=== PATIENT | male | born 1930 | race Caucasian/White ===

== ENCOUNTER 2017-11-04 16:16 | Inpatient (IN) | payer MEDICARE ==
[2017-11-04 17:19] LABS: HEMATOCRIT 42.6 % (42.0-52.0); HEMOGLOBIN 14.4 g/dl (13.5-17.5); MEAN CORPUSCULAR HGB CONC 33.8 g/dl (32.0-36.5); MEAN CORPUSCULAR VOLUME 94.7 fl (80.0-96.0); PLATELET COUNT, AUTOMATED 868 10^3/uL (150-450); RED CELL DISTRIBUTION WIDTH 14.3 % (11.5-14.5); WHITE BLOOD COUNT 20.7 10^3/uL (4.0-10.0)
[2017-11-04 17:43] LABS: ALBUMIN 3.7 GM/DL (3.2-5.2); ALBUMIN/GLOBULIN RATIO 1.19 (1.00-1.93); ALKALINE PHOSPHATASE 88 U/L (45-117); ALT/SGPT 34 U/L (12-78); ANION GAP 7 MEQ/L (8-16); AST/SGOT 24 U/L (7-37); BILIRUBIN,TOTAL 0.7 MG/DL (0.2-1.0); BLOOD UREA NITROGEN 20 MG/DL (7-18); CALCIUM LEVEL 9.2 MG/DL (8.8-10.2); CARBON DIOXIDE LEVEL 29 MEQ/L (21-32); CHLORIDE LEVEL 109 MEQ/L (98-107); CREATININE FOR GFR 1.06 MG/DL (0.70-1.30); GLOMERULAR FILTRATION RATE > 60.0 (>35); GLUCOSE, FASTING 101 MG/DL (70-100); POTASSIUM SERUM 4.3 MEQ/L (3.5-5.1); SODIUM LEVEL 145 MEQ/L (136-145); TOTAL PROTEIN 6.8 GM/DL (6.4-8.2)
[2017-11-04 17:50] LABS: INR 1.07; PROTHROMBIN TIME 14.1 SECONDS (12.1-14.4)
[2017-11-04 17:51] LABS: PARTIAL THROMBOPLASTIN TIME 34.6 SECONDS (25.4-37.6)
[2017-11-04] MEDS: ATORVASTATIN 20 MG TAB PO (20:52)
[2017-11-05] MEDS: LEVOTHYROXINE 50MCG TABLET (0.05MG) PO (05:32)
[2017-11-05 05:45] LABS: HEMATOCRIT 42.2 % (42.0-52.0); HEMOGLOBIN 14.1 g/dl (13.5-17.5); MEAN CORPUSCULAR HEMOGLOBIN 31.8 pg (27.0-33.0); MEAN CORPUSCULAR HGB CONC 33.4 g/dl (32.0-36.5); PLATELET COUNT, AUTOMATED 843 10^3/uL (150-450); RED BLOOD COUNT 4.44 10^6/uL (4.30-6.10); RED CELL DISTRIBUTION WIDTH 14.3 % (11.5-14.5); WHITE BLOOD COUNT 20.3 10^3/uL (4.0-10.0)
[2017-11-05 06:05] LABS: ANION GAP 4 MEQ/L (8-16); BLOOD UREA NITROGEN 21 MG/DL (7-18); CARBON DIOXIDE LEVEL 30 MEQ/L (21-32); CHLORIDE LEVEL 111 MEQ/L (98-107); CREATININE FOR GFR 1.19 MG/DL (0.70-1.30); GLOMERULAR FILTRATION RATE > 60.0 (>35); GLUCOSE, FASTING 123 MG/DL (70-100); POTASSIUM SERUM 4.6 MEQ/L (3.5-5.1); SODIUM LEVEL 145 MEQ/L (136-145)
[2017-11-05] MEDS: ATENOLOL 50 MG TAB PO (08:55)
[2017-11-05] MEDS: cefTRIAXone SOD 1 GM in D5W MINI-BAG PLUS 50 ML IV (08:56)
[2017-11-05 09:28] LABS: C REACTIVE PROTEIN QUANTITATIV 3.62 MG/DL (0.00-0.30)
[2017-11-05] MEDS ORDERED: PROPOFOL 200 MG/20 ML VIAL As Ordered ×6 (19:11→21:05)
[2017-11-05] MEDS: ATORVASTATIN 20 MG TAB PO (21:00)
[2017-11-05] MEDS ORDERED: ROCURONIUM BROMIDE 50 MG/5 ML VIAL As Ordered (21:59)
[2017-11-05] MEDS ORDERED: PHENYLEPHRINE INJ 10MG/ML VIAL (J2370) As Ordered (22:11)
[2017-11-05] MEDS: CONRAY-60 60% 50ML VIAL (Q9961) As Ordered (22:16)
[2017-11-05] MEDS ORDERED: SUGAMMADEX SODIUM 500 MG/5 ML VIAL (BRIDION) As Ordered (22:27)
[2017-11-05] MEDS ORDERED: MIDAZOLAM INJ 5 MG/ML VIAL (J2250) As Ordered (22:31)
[2017-11-05] MEDS: LR 1,000 ML IV (23:00)
[2017-11-05] MEDS ORDERED: PERCOCET 5MG/325MG TAB PO (23:00)
[2017-11-05] MEDS ORDERED: MIDAZOLAM INJ 2 MG/2 ML VIAL (J2250) As Ordered ×2 (23:16→23:53)
[2017-11-05] MEDS: MIDAZOLAM INJ 2 MG/2 ML VIAL (J2250) IV ×4 (23:17→23:54)
[2017-11-05] MEDS ORDERED: fentaNYL 100 MCG/2 ML INJECTION (J3010) As Ordered (23:34)
[2017-11-05 23:36] LABS: ABG BASE EXCESS -9.2 (-2.0-2.0); ABG HCO3 16.7 MEQ/L (22.0-26.0); ABG O2 SATURATION 97.6 % (95.0-99.0); ABG PARTIAL PRESSURE CO2 36.3 mmHg (35.0-45.0); ABG PARTIAL PRESSURE O2 101.7 mmHg (75.0-100.0); ABG STANDARD HCO3 17.2 MEQ/L (22.0-26.0); ABG TOTAL CO2 17.8 MEQ/L (23.0-31.0)
[2017-11-05] MEDS: fentaNYL 100 MCG/2 ML INJECTION (J3010) IV ×4 (23:37→23:53)
[2017-11-06] MEDS: SODIUM CHLORIDE 0.9% 1000 ML IV (00:06)
[2017-11-06 00:37] LABS: HEMATOCRIT 46.3 % (42.0-52.0); HEMOGLOBIN 14.6 g/dl (13.5-17.5); MEAN CORPUSCULAR HEMOGLOBIN 31.9 pg (27.0-33.0); MEAN CORPUSCULAR HGB CONC 31.5 g/dl (32.0-36.5); MEAN CORPUSCULAR VOLUME 101.1 fl (80.0-96.0); RED BLOOD COUNT 4.58 10^6/uL (4.30-6.10); RED CELL DISTRIBUTION WIDTH 14.7 % (11.5-14.5)
[2017-11-06] MEDS: NS 1,000 ML IV ×3 (01:00→20:02)
[2017-11-06 01:08] LABS: ANION GAP 10 MEQ/L (8-16); BLOOD UREA NITROGEN 19 MG/DL (7-18); CALCIUM LEVEL 7.9 MG/DL (8.8-10.2); CARBON DIOXIDE LEVEL 17 MEQ/L (21-32); CHLORIDE LEVEL 115 MEQ/L (98-107); GLOMERULAR FILTRATION RATE > 60.0 (>35); GLUCOSE, FASTING 108 MG/DL (70-100); POTASSIUM SERUM 4.5 MEQ/L (3.5-5.1); SODIUM LEVEL 142 MEQ/L (136-145)
[2017-11-06 01:11] LABS: POS COUNT POS FLAG
[2017-11-06 01:12] LABS: PLATELET COUNT, AUTOMATED 723 10^3/uL (150-450); WHITE BLOOD COUNT 36.6 10^3/uL (4.0-10.0)
[2017-11-06 01:16] LABS: LACTIC ACID SEPSIS PROTOCOL 2.9 MMOL/L (0.4-2.0)
[2017-11-06] MEDS: MIDAZOLAM INJ 2 MG/2 ML VIAL (J2250) IV ×5 (01:40→06:41)
[2017-11-06] MEDS ORDERED: ACETAMINOPHEN TAB 650MG DOSE (2X325MG) PO (02:45)
[2017-11-06] MEDS ORDERED: PERCOCET 5MG/325MG TAB PO (02:45)
[2017-11-06] MEDS ORDERED: ACETAMINOPHEN 650 MG SUPP PR (03:00)
[2017-11-06] MEDS: MORPHINE 4 MG/ML 1ML VIAL/SYRINGE (J2270) IV ×4 (03:04→20:02)
[2017-11-06] MEDS: MEROPENEM INJ 1 GM in APPROPRIATE DILUENT 1 EA IV ×3 (03:05→18:42)
[2017-11-06 05:34] LABS: HEMATOCRIT 42.5 % (42.0-52.0); HEMOGLOBIN 13.7 g/dl (13.5-17.5); MEAN CORPUSCULAR HEMOGLOBIN 31.6 pg (27.0-33.0); MEAN CORPUSCULAR HGB CONC 32.2 g/dl (32.0-36.5); MEAN CORPUSCULAR VOLUME 97.9 fl (80.0-96.0); PLATELET COUNT, AUTOMATED 819 10^3/uL (150-450); RED BLOOD COUNT 4.34 10^6/uL (4.30-6.10); RED CELL DISTRIBUTION WIDTH 14.7 % (11.5-14.5)
[2017-11-06 05:36] LABS: POS COUNT POS FLAG; WHITE BLOOD COUNT 40.4 10^3/uL (4.0-10.0)
[2017-11-06 05:45] LABS: BLOOD UREA NITROGEN 19 MG/DL (7-18); GLUCOSE, FASTING 107 MG/DL (70-100)
[2017-11-06 05:46] LABS: ANION GAP 10 MEQ/L (8-16); CALCIUM LEVEL 7.2 MG/DL (8.8-10.2); CARBON DIOXIDE LEVEL 23 MEQ/L (21-32); CHLORIDE LEVEL 112 MEQ/L (98-107); GLOMERULAR FILTRATION RATE 55.7 (>35); POTASSIUM SERUM 4.3 MEQ/L (3.5-5.1); SODIUM LEVEL 145 MEQ/L (136-145)
[2017-11-06] MEDS: LEVOTHYROXINE 50MCG TABLET (0.05MG) PO (06:00)
[2017-11-06 06:02] LABS: ABG BASE EXCESS -9.1 (-2.0-2.0); ABG HCO3 16.2 MEQ/L (22.0-26.0); ABG O2 SATURATION 99.1 % (95.0-99.0); ABG PARTIAL PRESSURE CO2 33.5 mmHg (35.0-45.0); ABG STANDARD HCO3 17.3 MEQ/L (22.0-26.0); ABG TOTAL CO2 17.3 MEQ/L (23.0-31.0); ABG pH (ARTERIAL) 7.303 UNITS (7.350-7.450)
[2017-11-06 10:23] LABS: ABG BASE EXCESS -9.4 (-2.0-2.0); ABG HCO3 15.1 MEQ/L (22.0-26.0); ABG O2 SATURATION 96.6 % (95.0-99.0); ABG PARTIAL PRESSURE CO2 29.4 mmHg (35.0-45.0); ABG PARTIAL PRESSURE O2 82.8 mmHg (75.0-100.0); ABG pH (ARTERIAL) 7.329 UNITS (7.350-7.450)
[2017-11-06 11:58] LABS: ABG BASE EXCESS -7.9 (-2.0-2.0); ABG HCO3 17.2 MEQ/L (22.0-26.0); ABG O2 SATURATION 95.7 % (95.0-99.0); ABG PARTIAL PRESSURE CO2 34.1 mmHg (35.0-45.0); ABG PARTIAL PRESSURE O2 78.7 mmHg (75.0-100.0); ABG STANDARD HCO3 18.1 MEQ/L (22.0-26.0); ABG TOTAL CO2 18.3 MEQ/L (23.0-31.0); ABG pH (ARTERIAL) 7.321 UNITS (7.350-7.450)
[2017-11-06] MEDS: ACETAMINOPHEN TAB 650MG DOSE (2X325MG) PO (17:15)
[2017-11-06 18:31] LABS: BASO # 0.1 10^3/uL (0.0-0.2); BASO % 0.2 % (0.0-1.0); EOS # 0.1 10^3/uL (0.0-0.50); EOS % 0.3 % (0.0-3.0); HEMATOCRIT 36.2 % (42.0-52.0); HEMOGLOBIN 11.9 g/dl (13.5-17.5); IMMATURE GRANULOCYTE % 1.6 % (0-3.0); LYMPH # 1.1 10^3/uL (1.5-4.5); LYMPH % 3.3 % (24.0-44.0); MEAN CORPUSCULAR HEMOGLOBIN 32.4 pg (27.0-33.0); MEAN CORPUSCULAR HGB CONC 32.9 g/dl (32.0-36.5); MEAN CORPUSCULAR VOLUME 98.6 fl (80.0-96.0); MONO # 1.4 10^3/uL (0.0-0.8); MONO % 4.3 % (0.0-5.0); NEUTROPHILS % 90.3 % (36.0-66.0); RED BLOOD COUNT 3.67 10^6/uL (4.30-6.10); RED CELL DISTRIBUTION WIDTH 14.9 % (11.5-14.5)
[2017-11-06 18:50] LABS: ANION GAP 11 MEQ/L (8-16); BLOOD UREA NITROGEN 23 MG/DL (7-18); CALCIUM LEVEL 7.2 MG/DL (8.8-10.2); CARBON DIOXIDE LEVEL 19 MEQ/L (21-32); CHLORIDE LEVEL 115 MEQ/L (98-107); CREATININE FOR GFR 1.58 MG/DL (0.70-1.30); GLOMERULAR FILTRATION RATE 44.5 (>35); GLUCOSE, FASTING 91 MG/DL (70-100); POTASSIUM SERUM 4.4 MEQ/L (3.5-5.1); SODIUM LEVEL 145 MEQ/L (136-145)
[2017-11-06 18:52] LABS: NEUTROPHILS # 29.4 10^3/uL (1.8-7.7); POS COUNT POS FLAG; POSITIVE DIFF POS FLAG
[2017-11-06 18:53] LABS: PLATELET COUNT, AUTOMATED 670 10^3/uL (150-450); WHITE BLOOD COUNT 32.6 10^3/uL (4.0-10.0)
[2017-11-06] MEDS: ATORVASTATIN 20 MG TAB PO (20:02)
[2017-11-07] MEDS: ACETAMINOPHEN TAB 650MG DOSE (2X325MG) PO ×3 (01:07→20:11)
[2017-11-07] MEDS: MEROPENEM INJ 1 GM in APPROPRIATE DILUENT 1 EA IV ×3 (02:13→18:14)
[2017-11-07 05:31] LABS: HEMOGLOBIN 10.8 g/dl (13.5-17.5); MEAN CORPUSCULAR HEMOGLOBIN 32.1 pg (27.0-33.0); MEAN CORPUSCULAR HGB CONC 32.7 g/dl (32.0-36.5); MEAN CORPUSCULAR VOLUME 98.2 fl (80.0-96.0); PLATELET COUNT, AUTOMATED 595 10^3/uL (150-450); RED BLOOD COUNT 3.36 10^6/uL (4.30-6.10); RED CELL DISTRIBUTION WIDTH 14.9 % (11.5-14.5); WHITE BLOOD COUNT 26.1 10^3/uL (4.0-10.0)
[2017-11-07 05:42] LABS: ANION GAP 8 MEQ/L (8-16); BLOOD UREA NITROGEN 19 MG/DL (7-18); CALCIUM LEVEL 7.1 MG/DL (8.8-10.2); CARBON DIOXIDE LEVEL 21 MEQ/L (21-32); CHLORIDE LEVEL 116 MEQ/L (98-107); CREATININE FOR GFR 1.13 MG/DL (0.70-1.30); GLOMERULAR FILTRATION RATE > 60.0 (>35); GLUCOSE, FASTING 116 MG/DL (70-100); POTASSIUM SERUM 3.6 MEQ/L (3.5-5.1); SODIUM LEVEL 145 MEQ/L (136-145)
[2017-11-07] MEDS: LEVOTHYROXINE 50MCG TABLET (0.05MG) PO (05:59)
[2017-11-07] MEDS: NS 1,000 ML IV (06:03)
[2017-11-07] MEDS: POTASSIUM CHLORIDE 10 MEQ SR TABLET PO (08:36)
[2017-11-07] MEDS: MORPHINE 4 MG/ML 1ML VIAL/SYRINGE (J2270) IV (20:10)
[2017-11-07] MEDS: ATORVASTATIN 20 MG TAB PO (20:11)
[2017-11-08] MEDS: ACETAMINOPHEN TAB 650MG DOSE (2X325MG) PO ×2 (01:58→12:21)
[2017-11-08] MEDS: MEROPENEM INJ 1 GM in APPROPRIATE DILUENT 1 EA IV ×3 (02:01→19:06)
[2017-11-08 04:37] LABS: HEMATOCRIT 33.6 % (42.0-52.0); HEMOGLOBIN 11.2 g/dl (13.5-17.5); MEAN CORPUSCULAR HEMOGLOBIN 31.7 pg (27.0-33.0); MEAN CORPUSCULAR HGB CONC 33.3 g/dl (32.0-36.5); MEAN CORPUSCULAR VOLUME 95.2 fl (80.0-96.0); PLATELET COUNT, AUTOMATED 581 10^3/uL (150-450); RED BLOOD COUNT 3.53 10^6/uL (4.30-6.10); RED CELL DISTRIBUTION WIDTH 14.5 % (11.5-14.5); WHITE BLOOD COUNT 21.3 10^3/uL (4.0-10.0)
[2017-11-08 04:56] LABS: ANION GAP 7 MEQ/L (8-16); BLOOD UREA NITROGEN 17 MG/DL (7-18); CALCIUM LEVEL 7.8 MG/DL (8.8-10.2); CARBON DIOXIDE LEVEL 25 MEQ/L (21-32); CHLORIDE LEVEL 115 MEQ/L (98-107); CREATININE FOR GFR 0.91 MG/DL (0.70-1.30); GLOMERULAR FILTRATION RATE > 60.0 (>35); GLUCOSE, FASTING 138 MG/DL (70-100); POTASSIUM SERUM 3.6 MEQ/L (3.5-5.1); SODIUM LEVEL 147 MEQ/L (136-145)
[2017-11-08] MEDS: LEVOTHYROXINE 50MCG TABLET (0.05MG) PO (06:16)
[2017-11-08] MEDS: amLODIPine 5 MG TAB PO ×2 (08:15→16:48)
[2017-11-08] MEDS ORDERED: LIDOCAINE 5% (LIDODERM) PATCH TD (10:30)
[2017-11-08] MEDS: LIDOCAINE 5% (LIDODERM) PATCH TD (10:32)
[2017-11-08] MEDS: ATENOLOL 50 MG TAB PO (12:21)
[2017-11-08] MEDS ORDERED: HEPARIN SOD (PORCINE) 5000 UNITS/ML VIAL IV (14:45)
[2017-11-08 15:31] LABS: PARTIAL THROMBOPLASTIN TIME 37.8 SECONDS (25.4-37.6)
[2017-11-08 16:27] LABS: PARTIAL THROMBOPLASTIN TIME 37.4 SECONDS (25.4-37.6)
[2017-11-08] MEDS: HEPARIN DRIP 25,000 UNITS in APPROPRIATE DILUENT 1 EA IV (16:48)
[2017-11-08] MEDS ORDERED: **NOTE PATIENT COMMENT** MISC XX (21:00)
[2017-11-08] MEDS: **NOTE PATIENT COMMENT** MISC XX (21:00)
[2017-11-08] MEDS: ATORVASTATIN 20 MG TAB PO (21:10)
[2017-11-08 23:17] LABS: PARTIAL THROMBOPLASTIN TIME 92.2 SECONDS (25.4-37.6)
[2017-11-09] MEDS: MEROPENEM INJ 1 GM in APPROPRIATE DILUENT 1 EA IV ×3 (03:00→18:02)
[2017-11-09 05:12] LABS: HEMATOCRIT 34.3 % (42.0-52.0); HEMOGLOBIN 11.7 g/dl (13.5-17.5); MEAN CORPUSCULAR HGB CONC 34.1 g/dl (32.0-36.5); MEAN CORPUSCULAR VOLUME 93.7 fl (80.0-96.0); PLATELET COUNT, AUTOMATED 502 10^3/uL (150-450); RED BLOOD COUNT 3.66 10^6/uL (4.30-6.10); RED CELL DISTRIBUTION WIDTH 14.2 % (11.5-14.5); WHITE BLOOD COUNT 15.6 10^3/uL (4.0-10.0)
[2017-11-09 05:24] LABS: PARTIAL THROMBOPLASTIN TIME 77.7 SECONDS (25.4-37.6)
[2017-11-09 05:31] LABS: ANION GAP 5 MEQ/L (8-16); BLOOD UREA NITROGEN 12 MG/DL (7-18); C REACTIVE PROTEIN QUANTITATIV 8.76 MG/DL (0.00-0.30); CALCIUM LEVEL 7.8 MG/DL (8.8-10.2); CARBON DIOXIDE LEVEL 28 MEQ/L (21-32); CHLORIDE LEVEL 109 MEQ/L (98-107); CREATININE FOR GFR 0.78 MG/DL (0.70-1.30); GLOMERULAR FILTRATION RATE > 60.0 (>35); GLUCOSE, FASTING 110 MG/DL (70-100); POTASSIUM SERUM 3.6 MEQ/L (3.5-5.1); SODIUM LEVEL 142 MEQ/L (136-145)
[2017-11-09] MEDS: LEVOTHYROXINE 50MCG TABLET (0.05MG) PO (06:25)
[2017-11-09] MEDS: LIDOCAINE 5% (LIDODERM) PATCH TD (08:28)
[2017-11-09] MEDS: ACETAMINOPHEN TAB 650MG DOSE (2X325MG) PO (08:29)
[2017-11-09] MEDS: amLODIPine 10 MG TAB PO (08:30)
[2017-11-09] MEDS: ATENOLOL 50 MG TAB PO (08:30)
[2017-11-09] MEDS: HEPARIN DRIP 25,000 UNITS in APPROPRIATE DILUENT 1 EA IV (18:04)
[2017-11-09] MEDS: **NOTE PATIENT COMMENT** MISC XX (20:07)
[2017-11-09] MEDS: ATORVASTATIN 20 MG TAB PO (20:07)
[2017-11-10] MEDS: MEROPENEM INJ 1 GM in APPROPRIATE DILUENT 1 EA IV ×3 (03:57→18:20)
[2017-11-10 04:24] LABS: HEMATOCRIT 34.8 % (42.0-52.0); HEMOGLOBIN 11.7 g/dl (13.5-17.5); MEAN CORPUSCULAR HEMOGLOBIN 31.2 pg (27.0-33.0); MEAN CORPUSCULAR HGB CONC 33.6 g/dl (32.0-36.5); MEAN CORPUSCULAR VOLUME 92.8 fl (80.0-96.0); PLATELET COUNT, AUTOMATED 492 10^3/uL (150-450); RED BLOOD COUNT 3.75 10^6/uL (4.30-6.10); RED CELL DISTRIBUTION WIDTH 13.9 % (11.5-14.5); WHITE BLOOD COUNT 11.7 10^3/uL (4.0-10.0)
[2017-11-10 04:36] LABS: PARTIAL THROMBOPLASTIN TIME 80.7 SECONDS (25.4-37.6)
[2017-11-10 04:48] LABS: ANION GAP 5 MEQ/L (8-16); BLOOD UREA NITROGEN 14 MG/DL (7-18); C REACTIVE PROTEIN QUANTITATIV 5.74 MG/DL (0.00-0.30); CALCIUM LEVEL 8.1 MG/DL (8.8-10.2); CARBON DIOXIDE LEVEL 30 MEQ/L (21-32); CHLORIDE LEVEL 107 MEQ/L (98-107); CREATININE FOR GFR 0.85 MG/DL (0.70-1.30); GLOMERULAR FILTRATION RATE > 60.0 (>35); GLUCOSE, FASTING 104 MG/DL (70-100); POTASSIUM SERUM 3.7 MEQ/L (3.5-5.1); SODIUM LEVEL 142 MEQ/L (136-145)
[2017-11-10] MEDS: LEVOTHYROXINE 50MCG TABLET (0.05MG) PO (05:56)
[2017-11-10] MEDS: amLODIPine 10 MG TAB PO (08:57)
[2017-11-10] MEDS: LIDOCAINE 5% (LIDODERM) PATCH TD (08:57)
[2017-11-10] MEDS: ATENOLOL 50 MG TAB PO (08:58)
[2017-11-10] MEDS: HEPARIN DRIP 25,000 UNITS in APPROPRIATE DILUENT 1 EA IV (18:19)
[2017-11-10] MEDS: ACETAMINOPHEN TAB 650MG DOSE (2X325MG) PO (20:30)
[2017-11-10] MEDS: ATORVASTATIN 20 MG TAB PO (20:31)
[2017-11-10] MEDS: **NOTE PATIENT COMMENT** MISC XX (21:00)
[2017-11-11] MEDS: MEROPENEM INJ 1 GM in APPROPRIATE DILUENT 1 EA IV ×3 (02:50→18:24)
[2017-11-11] MEDS: LEVOTHYROXINE 50MCG TABLET (0.05MG) PO (06:19)
[2017-11-11 06:25] LABS: HEMATOCRIT 35.9 % (42.0-52.0); HEMOGLOBIN 12.3 g/dl (13.5-17.5); MEAN CORPUSCULAR HEMOGLOBIN 31.1 pg (27.0-33.0); MEAN CORPUSCULAR HGB CONC 34.3 g/dl (32.0-36.5); MEAN CORPUSCULAR VOLUME 90.9 fl (80.0-96.0); PLATELET COUNT, AUTOMATED 535 10^3/uL (150-450); RED BLOOD COUNT 3.95 10^6/uL (4.30-6.10); RED CELL DISTRIBUTION WIDTH 13.8 % (11.5-14.5); WHITE BLOOD COUNT 14.9 10^3/uL (4.0-10.0)
[2017-11-11 06:29] LABS: INR 1.07
[2017-11-11 06:31] LABS: PARTIAL THROMBOPLASTIN TIME 72.5 SECONDS (25.4-37.6)
[2017-11-11 06:33] LABS: ANION GAP 8 MEQ/L (8-16); BLOOD UREA NITROGEN 18 MG/DL (7-18); CALCIUM LEVEL 8.2 MG/DL (8.8-10.2); CARBON DIOXIDE LEVEL 28 MEQ/L (21-32); CHLORIDE LEVEL 106 MEQ/L (98-107); CREATININE FOR GFR 0.92 MG/DL (0.70-1.30); GLOMERULAR FILTRATION RATE > 60.0 (>35); GLUCOSE, FASTING 105 MG/DL (70-100); POTASSIUM SERUM 3.9 MEQ/L (3.5-5.1); SODIUM LEVEL 142 MEQ/L (136-145)
[2017-11-11] MEDS: LIDOCAINE 5% (LIDODERM) PATCH TD (09:22)
[2017-11-11] MEDS: ATENOLOL 50 MG TAB PO (09:23)
[2017-11-11] MEDS: amLODIPine 10 MG TAB PO (09:23)
[2017-11-11] MEDS: ATORVASTATIN 20 MG TAB PO (20:51)
[2017-11-11] MEDS: **NOTE PATIENT COMMENT** MISC XX (20:52)
[2017-11-12] MEDS: MEROPENEM INJ 1 GM in APPROPRIATE DILUENT 1 EA IV ×3 (03:12→18:27)
[2017-11-12] MEDS: LEVOTHYROXINE 50MCG TABLET (0.05MG) PO (05:58)
[2017-11-12 06:03] LABS: HEMATOCRIT 34.5 % (42.0-52.0); HEMOGLOBIN 11.6 g/dl (13.5-17.5); MEAN CORPUSCULAR HEMOGLOBIN 31.4 pg (27.0-33.0); MEAN CORPUSCULAR HGB CONC 33.6 g/dl (32.0-36.5); MEAN CORPUSCULAR VOLUME 93.5 fl (80.0-96.0); PLATELET COUNT, AUTOMATED 500 10^3/uL (150-450); RED BLOOD COUNT 3.69 10^6/uL (4.30-6.10); WHITE BLOOD COUNT 17.3 10^3/uL (4.0-10.0)
[2017-11-12 06:25] LABS: ANION GAP 7 MEQ/L (8-16); BLOOD UREA NITROGEN 18 MG/DL (7-18); C REACTIVE PROTEIN QUANTITATIV 5.24 MG/DL (0.00-0.30); CARBON DIOXIDE LEVEL 29 MEQ/L (21-32); CHLORIDE LEVEL 105 MEQ/L (98-107); CREATININE FOR GFR 0.87 MG/DL (0.70-1.30); GLOMERULAR FILTRATION RATE > 60.0 (>35); GLUCOSE, FASTING 102 MG/DL (70-100); MAGNESIUM LEVEL 1.9 MG/DL (1.8-2.4); SODIUM LEVEL 141 MEQ/L (136-145)
[2017-11-12] MEDS: ATENOLOL 50 MG TAB PO (08:11)
[2017-11-12] MEDS: amLODIPine 10 MG TAB PO (08:11)
[2017-11-12] MEDS: LIDOCAINE 5% (LIDODERM) PATCH TD (08:12)
[2017-11-12 14:15] LABS: COMMENT Comment: (.); Ca Ox Monohydrate 93 % (.)
[2017-11-12] MEDS: ACETAMINOPHEN TAB 650MG DOSE (2X325MG) PO (20:15)
[2017-11-12] MEDS: **NOTE PATIENT COMMENT** MISC XX (20:16)
[2017-11-12] MEDS: ATORVASTATIN 20 MG TAB PO (20:16)
[2017-11-13] MEDS: MEROPENEM INJ 1 GM in APPROPRIATE DILUENT 1 EA IV (03:02)
[2017-11-13] MEDS: LEVOTHYROXINE 50MCG TABLET (0.05MG) PO (05:53)
[2017-11-13 06:27] LABS: HEMATOCRIT 36.4 % (42.0-52.0); MEAN CORPUSCULAR HEMOGLOBIN 30.9 pg (27.0-33.0); MEAN CORPUSCULAR VOLUME 93.8 fl (80.0-96.0); PLATELET COUNT, AUTOMATED 554 10^3/uL (150-450); RED BLOOD COUNT 3.88 10^6/uL (4.30-6.10); RED CELL DISTRIBUTION WIDTH 14.1 % (11.5-14.5); WHITE BLOOD COUNT 18.8 10^3/uL (4.0-10.0)
[2017-11-13 06:40] LABS: ANION GAP 8 MEQ/L (8-16); BLOOD UREA NITROGEN 22 MG/DL (7-18); CALCIUM LEVEL 8.3 MG/DL (8.8-10.2); CARBON DIOXIDE LEVEL 28 MEQ/L (21-32); CHLORIDE LEVEL 106 MEQ/L (98-107); GLOMERULAR FILTRATION RATE > 60.0 (>35); GLUCOSE, FASTING 98 MG/DL (70-100); MAGNESIUM LEVEL 2.2 MG/DL (1.8-2.4); POTASSIUM SERUM 4.2 MEQ/L (3.5-5.1); SODIUM LEVEL 142 MEQ/L (136-145)
[2017-11-13] MEDS: amLODIPine 10 MG TAB PO (08:37)
[2017-11-13] MEDS: LIDOCAINE 5% (LIDODERM) PATCH TD (08:38)
[2017-11-13] MEDS: ATENOLOL 50 MG TAB PO (08:38)
[2017-11-13 09:28] LABS: REASON FOR REVIEW WBC/LEUKEMIA/BLAST; SOURCE PERIPHERAL SMEAR
[2017-11-13 09:29] LABS: SLIDE REVIEW Report
[2017-11-13] MEDS: APIXABAN 5 MG TAB (ELIQUIS) PO ×2 (10:47→20:00)
[2017-11-13] MEDS: ACETAMINOPHEN TAB 650MG DOSE (2X325MG) PO (20:00)
[2017-11-13] MEDS: ATORVASTATIN 20 MG TAB PO (20:00)
[2017-11-13] MEDS: **NOTE PATIENT COMMENT** MISC XX (20:00)
[2017-11-14] MEDS: LEVOTHYROXINE 50MCG TABLET (0.05MG) PO (05:47)
[2017-11-14 06:20] LABS: HEMATOCRIT 35.2 % (42.0-52.0); HEMOGLOBIN 11.7 g/dl (13.5-17.5); MEAN CORPUSCULAR HEMOGLOBIN 31.3 pg (27.0-33.0); MEAN CORPUSCULAR HGB CONC 33.2 g/dl (32.0-36.5); MEAN CORPUSCULAR VOLUME 94.1 fl (80.0-96.0); PLATELET COUNT, AUTOMATED 585 10^3/uL (150-450); RED BLOOD COUNT 3.74 10^6/uL (4.30-6.10); RED CELL DISTRIBUTION WIDTH 14.2 % (11.5-14.5); WHITE BLOOD COUNT 17.5 10^3/uL (4.0-10.0)
[2017-11-14 06:33] LABS: ANION GAP 6 MEQ/L (8-16); BLOOD UREA NITROGEN 28 MG/DL (7-18); CALCIUM LEVEL 8.2 MG/DL (8.8-10.2); CARBON DIOXIDE LEVEL 29 MEQ/L (21-32); CHLORIDE LEVEL 105 MEQ/L (98-107); CREATININE FOR GFR 0.98 MG/DL (0.70-1.30); GLOMERULAR FILTRATION RATE > 60.0 (>35); GLUCOSE, FASTING 99 MG/DL (70-100); MAGNESIUM LEVEL 2.3 MG/DL (1.8-2.4); POTASSIUM SERUM 4.2 MEQ/L (3.5-5.1); SODIUM LEVEL 140 MEQ/L (136-145)
[2017-11-14] MEDS: ATENOLOL 50 MG TAB PO (09:22)
[2017-11-14] MEDS: LIDOCAINE 5% (LIDODERM) PATCH TD (09:22)
[2017-11-14] MEDS: APIXABAN 5 MG TAB (ELIQUIS) PO (09:22)
[2017-11-14] MEDS: amLODIPine 10 MG TAB PO (09:22)
== END 2017-11-14 13:02 | disposition home or self-care (01) | DRG 693 ==
LOC: M ICU 11-06 00:09 → M MSPAV 16:16
PROC: 5A1945Z Respiratory Ventilation, 24-96 Consecutive Hours (ICD-10-PCS; principal; 2017-11-05 19:19)
PROC: 0TCB7ZZ Extirpation of Matter from Bladder, Via Natural or Artificial Opening (ICD-10-PCS; 2017-11-05 19:19)
DX: N20.0 Calculus of kidney (principal); J95.822 Acute and chronic postprocedural respiratory failure; E87.2 Acidosis; N99.71 Accidental puncture and laceration of a genitourinary system organ or structure during a genitourinary system procedure; K40.30 Unilateral inguinal hernia, with obstruction, without gangrene, not specified as recurrent; N39.0 Urinary tract infection, site not specified; R31.0 Gross hematuria; I10 Essential (primary) hypertension; E78.5 Hyperlipidemia, unspecified; E03.9 Hypothyroidism, unspecified; D72.829 Elevated white blood cell count, unspecified; I48.0 Paroxysmal atrial fibrillation; F01.50 Vascular dementia, unspecified severity, without behavioral disturbance, psychotic disturbance, mood disturbance, and anxiety; Z79.82 Long term (current) use of aspirin; Z79.899 Other long term (current) drug therapy; Z96.653 Presence of artificial knee joint, bilateral; M19.90 Unspecified osteoarthritis, unspecified site; Z96.641 Presence of right artificial hip joint; D69.6 Thrombocytopenia, unspecified; Z96.643 Presence of artificial hip joint, bilateral

== ENCOUNTER → 2017-11-28 | Outpatient (CLI) | payer MEDICARE ==
[~2017-11-28] MED LIST: CYSTO-CONRAY II 17.2% 250ML VIAL (Q9958) As Ordered
== END ==
LOC: M RADPRO 12:25
DX: S37.20XA Unspecified injury of bladder, initial encounter (principal); N32.3 Diverticulum of bladder; N32.89 Other specified disorders of bladder; N32.0 Bladder-neck obstruction; Z96.643 Presence of artificial hip joint, bilateral; Y92.89 Other specified places as the place of occurrence of the external cause; Y93.89 Activity, other specified; X58.XXXA Exposure to other specified factors, initial encounter; Y99.8 Other external cause status
CPT/HCPCS: 51600

== ENCOUNTER 2017-12-27 20:55 | Inpatient (IN) | payer MEDICARE ==
[2017-12-27] MEDS ORDERED: HEPARIN SOD (PORCINE) 5000 UNITS/ML VIAL SC (22:00)
[2017-12-28] MEDS: ATORVASTATIN 20 MG TAB PO ×2 (00:35→20:37)
[2017-12-28] MEDS: LEVOTHYROXINE 50MCG TABLET (0.05MG) PO (05:23)
[2017-12-28] MEDS: SLF 3 ML SYR IV ×3 (05:24→21:30)
[2017-12-28] MEDS: HEPARIN SOD (PORCINE) 5000 UNITS/ML VIAL SC (05:24)
[2017-12-28 05:28] LABS: HEMATOCRIT 33.8 % (42.0-52.0); HEMOGLOBIN 11.1 g/dl (13.5-17.5); MEAN CORPUSCULAR HEMOGLOBIN 29.4 pg (27.0-33.0); MEAN CORPUSCULAR HGB CONC 32.8 g/dl (32.0-36.5); MEAN CORPUSCULAR VOLUME 89.7 fl (80.0-96.0); PLATELET COUNT, AUTOMATED 764 10^3/uL (150-450); RED BLOOD COUNT 3.77 10^6/uL (4.30-6.10); RED CELL DISTRIBUTION WIDTH 14.7 % (11.5-14.5); WHITE BLOOD COUNT 17.7 10^3/uL (4.0-10.0)
[2017-12-28 05:51] LABS: BLOOD UREA NITROGEN 20 MG/DL (7-18); CREATININE FOR GFR 1.04 MG/DL (0.70-1.30); GLUCOSE, FASTING 89 MG/DL (70-100)
[2017-12-28 05:52] LABS: ANION GAP 7 MEQ/L (8-16); CALCIUM LEVEL 8.7 MG/DL (8.8-10.2); CARBON DIOXIDE LEVEL 27 MEQ/L (21-32); CHLORIDE LEVEL 106 MEQ/L (98-107); FERRITIN 40 NG/ML (26-388); GLOMERULAR FILTRATION RATE > 60.0 (>35); IRON (FE) 70 UG/DL (65-175); PERCENT SATURATION 29.2 % (19.7-50.0); SODIUM LEVEL 140 MEQ/L (136-145); TOTAL IRON BINDING CAPACITY 240 UG/DL (250-450)
[2017-12-28] MEDS: amLODIPine 10 MG TAB PO (09:29)
[2017-12-28] MEDS: ATENOLOL 50 MG TAB PO (09:30)
[2017-12-28] MEDS: FINASTERIDE 5 MG TAB PO (14:32)
[2017-12-28] MEDS: CIPROFLOXACIN 500 MG TAB PO (15:49)
[2017-12-28] MEDS: TAMSULOSIN 0.4 MG CAP PO (20:37)
[2017-12-28] MEDS: ACETAMINOPHEN TAB 650MG DOSE (2X325MG) PO (20:38)
[2017-12-29] MEDS: CIPROFLOXACIN 500 MG TAB PO ×2 (05:46→18:35)
[2017-12-29] MEDS: LEVOTHYROXINE 50MCG TABLET (0.05MG) PO (05:46)
[2017-12-29] MEDS: SLF 3 ML SYR IV ×4 (05:47→21:37)
[2017-12-29 05:56] LABS: HEMATOCRIT 30.1 % (42.0-52.0); HEMOGLOBIN 9.8 g/dl (13.5-17.5); MEAN CORPUSCULAR HEMOGLOBIN 29.3 pg (27.0-33.0); MEAN CORPUSCULAR HGB CONC 32.6 g/dl (32.0-36.5); MEAN CORPUSCULAR VOLUME 90.1 fl (80.0-96.0); PLATELET COUNT, AUTOMATED 689 10^3/uL (150-450); RED BLOOD COUNT 3.34 10^6/uL (4.30-6.10); RED CELL DISTRIBUTION WIDTH 14.8 % (11.5-14.5)
[2017-12-29 06:15] LABS: ANION GAP 6 MEQ/L (8-16); BLOOD UREA NITROGEN 24 MG/DL (7-18); CALCIUM LEVEL 8.7 MG/DL (8.8-10.2); CARBON DIOXIDE LEVEL 27 MEQ/L (21-32); CHLORIDE LEVEL 108 MEQ/L (98-107); CREATININE FOR GFR 1.13 MG/DL (0.70-1.30); GLOMERULAR FILTRATION RATE > 60.0 (>35); GLUCOSE, FASTING 90 MG/DL (70-100); MAGNESIUM LEVEL 1.8 MG/DL (1.8-2.4); POTASSIUM SERUM 4.4 MEQ/L (3.5-5.1); SODIUM LEVEL 141 MEQ/L (136-145)
[2017-12-29] MEDS: FINASTERIDE 5 MG TAB PO (08:28)
[2017-12-29] MEDS: ACETAMINOPHEN TAB 650MG DOSE (2X325MG) PO (08:28)
[2017-12-29] MEDS: amLODIPine 10 MG TAB PO (08:40)
[2017-12-29] MEDS: ATENOLOL 50 MG TAB PO (08:40)
[2017-12-29] MEDS: APIXABAN 2.5 MG TAB (ELIQUIS) PO ×2 (12:11→21:35)
[2017-12-29] MEDS: TAMSULOSIN 0.4 MG CAP PO (21:35)
[2017-12-29] MEDS: ATORVASTATIN 20 MG TAB PO (21:35)
[2017-12-30] MEDS: LEVOTHYROXINE 50MCG TABLET (0.05MG) PO (05:15)
[2017-12-30] MEDS: CIPROFLOXACIN 500 MG TAB PO ×2 (05:15→17:54)
[2017-12-30] MEDS: SLF 3 ML SYR IV ×3 (05:15→21:38)
[2017-12-30 06:48] LABS: HEMATOCRIT 31.1 % (42.0-52.0); HEMOGLOBIN 9.9 g/dl (13.5-17.5); MEAN CORPUSCULAR HEMOGLOBIN 29.4 pg (27.0-33.0); MEAN CORPUSCULAR HGB CONC 31.8 g/dl (32.0-36.5); MEAN CORPUSCULAR VOLUME 92.3 fl (80.0-96.0); PLATELET COUNT, AUTOMATED 691 10^3/uL (150-450); RED BLOOD COUNT 3.37 10^6/uL (4.30-6.10); RED CELL DISTRIBUTION WIDTH 14.8 % (11.5-14.5); WHITE BLOOD COUNT 13.1 10^3/uL (4.0-10.0)
[2017-12-30 07:00] LABS: ANION GAP 6 MEQ/L (8-16); BLOOD UREA NITROGEN 22 MG/DL (7-18); CALCIUM LEVEL 8.2 MG/DL (8.8-10.2); CARBON DIOXIDE LEVEL 27 MEQ/L (21-32); CHLORIDE LEVEL 106 MEQ/L (98-107); CREATININE FOR GFR 1.15 MG/DL (0.70-1.30); GLOMERULAR FILTRATION RATE > 60.0 (>35); GLUCOSE, FASTING 100 MG/DL (70-100); MAGNESIUM LEVEL 1.7 MG/DL (1.8-2.4); POTASSIUM SERUM 4.2 MEQ/L (3.5-5.1); SODIUM LEVEL 139 MEQ/L (136-145)
[2017-12-30] MEDS: FINASTERIDE 5 MG TAB PO (09:07)
[2017-12-30] MEDS: APIXABAN 2.5 MG TAB (ELIQUIS) PO ×2 (09:07→21:37)
[2017-12-30] MEDS: ATENOLOL 50 MG TAB PO (09:07)
[2017-12-30 09:20] LABS: APPEARANCE, URINE CLOUDY (CLEAR); BACTERIA, URINE AUTO NEGATIVE (NEGATIVE); BILIRUBIN, URINE AUTO NEGATIVE (NEGATIVE); BLOOD, URINE BLOOD 3+ (NEGATIVE); COLOR, URINE YELLOW (YELLOW); GLUCOSE, URINE (UA) AUTO NEGATIVE (NEGATIVE); KETONE, URINE AUTO NEGATIVE (NEGATIVE); LEUKOCYTE ESTERASE, URINE AUTO 3+ (NEGATIVE); MUCUS, URINE MODERATE (NEGATIVE); NITRITE, URINE AUTO NEGATIVE (NEGATIVE); PROTEIN, URINE AUTO 1+ mg/dL (NEGATIVE); RBC, URINE AUTO 62 /HPF (0-3); SPECIFIC GRAVITY URINE AUTO 1.014 (1.002-1.035); SQUAMOUS EPITHELIAL CELL UR AU 0 /HPF (0-6); UROBILINOGEN, URINE AUTO 0.2 mg/dL (0.0-2.0); WBC, URINE AUTO 154 /HPF (0-3)
[2017-12-30 10:11] LABS: ERYTHROPOIETIN 6.9 mIU/mL (2.6-18.5)
[2017-12-30] MEDS: MAG SULF 1GM/100ML (MAG RUN) 1 GM in APPROPRIATE DILUENT 1 EA IV (13:40)
[2017-12-30] MEDS: TAMSULOSIN 0.4 MG CAP PO (21:37)
[2017-12-30] MEDS: ATORVASTATIN 20 MG TAB PO (21:37)
[2017-12-30] MEDS: ACETAMINOPHEN TAB 650MG DOSE (2X325MG) PO (21:37)
[2017-12-31] MEDS: CIPROFLOXACIN 500 MG TAB PO ×2 (05:29→18:42)
[2017-12-31] MEDS: SLF 3 ML SYR IV ×3 (05:29→21:36)
[2017-12-31] MEDS: LEVOTHYROXINE 50MCG TABLET (0.05MG) PO (05:30)
[2017-12-31 06:43] LABS: HEMATOCRIT 29.4 % (42.0-52.0); HEMOGLOBIN 9.6 g/dl (13.5-17.5); MEAN CORPUSCULAR HEMOGLOBIN 29.3 pg (27.0-33.0); MEAN CORPUSCULAR HGB CONC 32.7 g/dl (32.0-36.5); MEAN CORPUSCULAR VOLUME 89.6 fl (80.0-96.0); PLATELET COUNT, AUTOMATED 701 10^3/uL (150-450); RED BLOOD COUNT 3.28 10^6/uL (4.30-6.10); RED CELL DISTRIBUTION WIDTH 14.7 % (11.5-14.5); WHITE BLOOD COUNT 12.2 10^3/uL (4.0-10.0)
[2017-12-31 07:07] LABS: ANION GAP 6 MEQ/L (8-16); BLOOD UREA NITROGEN 24 MG/DL (7-18); CALCIUM LEVEL 8.3 MG/DL (8.8-10.2); CARBON DIOXIDE LEVEL 26 MEQ/L (21-32); CHLORIDE LEVEL 108 MEQ/L (98-107); CREATININE FOR GFR 1.12 MG/DL (0.70-1.30); GLOMERULAR FILTRATION RATE > 60.0 (>35); GLUCOSE, FASTING 97 MG/DL (70-100); MAGNESIUM LEVEL 1.8 MG/DL (1.8-2.4); SODIUM LEVEL 140 MEQ/L (136-145)
[2017-12-31] MEDS: FINASTERIDE 5 MG TAB PO (09:21)
[2017-12-31] MEDS: APIXABAN 2.5 MG TAB (ELIQUIS) PO ×2 (09:22→21:35)
[2017-12-31] MEDS: ATENOLOL 50 MG TAB PO (09:22)
[2017-12-31] MEDS: TAMSULOSIN 0.4 MG CAP PO (21:35)
[2017-12-31] MEDS: ATORVASTATIN 20 MG TAB PO (21:35)
[2018-01-01] MEDS: CIPROFLOXACIN 500 MG TAB PO (05:31)
[2018-01-01] MEDS: LEVOTHYROXINE 50MCG TABLET (0.05MG) PO (05:32)
[2018-01-01] MEDS: SLF 3 ML SYR IV (05:32)
[2018-01-01 05:50] LABS: HEMATOCRIT 28.9 % (42.0-52.0); HEMOGLOBIN 9.4 g/dl (13.5-17.5); MEAN CORPUSCULAR HEMOGLOBIN 29.6 pg (27.0-33.0); MEAN CORPUSCULAR HGB CONC 32.5 g/dl (32.0-36.5); MEAN CORPUSCULAR VOLUME 90.9 fl (80.0-96.0); PLATELET COUNT, AUTOMATED 692 10^3/uL (150-450); RED BLOOD COUNT 3.18 10^6/uL (4.30-6.10); RED CELL DISTRIBUTION WIDTH 14.7 % (11.5-14.5)
[2018-01-01 06:10] LABS: ANION GAP 9 MEQ/L (8-16); BLOOD UREA NITROGEN 22 MG/DL (7-18); CALCIUM LEVEL 8.2 MG/DL (8.8-10.2); CARBON DIOXIDE LEVEL 26 MEQ/L (21-32); CHLORIDE LEVEL 108 MEQ/L (98-107); CREATININE FOR GFR 1.16 MG/DL (0.70-1.30); GLOMERULAR FILTRATION RATE > 60.0 (>35); GLUCOSE, FASTING 88 MG/DL (70-100); MAGNESIUM LEVEL 1.8 MG/DL (1.8-2.4); POTASSIUM SERUM 4.1 MEQ/L (3.5-5.1); SODIUM LEVEL 143 MEQ/L (136-145)
[2018-01-01] MEDS: FINASTERIDE 5 MG TAB PO (09:18)
[2018-01-01] MEDS: APIXABAN 2.5 MG TAB (ELIQUIS) PO (09:18)
[2018-01-01] MEDS: ATENOLOL 50 MG TAB PO (09:19)
== END 2018-01-01 12:59 | disposition home or self-care (01) | DRG 690 ==
LOC: M PCU 20:55 → M MSPAV 12-28 14:44
DX: N39.0 Urinary tract infection, site not specified (principal); D47.1 Chronic myeloproliferative disease; R31.9 Hematuria, unspecified; I48.0 Paroxysmal atrial fibrillation; I73.9 Peripheral vascular disease, unspecified; I10 Essential (primary) hypertension; Z79.899 Other long term (current) drug therapy; E78.5 Hyperlipidemia, unspecified; E03.9 Hypothyroidism, unspecified; F03.90 Unspecified dementia, unspecified severity, without behavioral disturbance, psychotic disturbance, mood disturbance, and anxiety; K21.9 Gastro-esophageal reflux disease without esophagitis; N40.0 Benign prostatic hyperplasia without lower urinary tract symptoms; N20.0 Calculus of kidney

== ENCOUNTER → 2018-07-28 | Outpatient (REF) | payer MEDICARE ==
[~2018-07-28] MED LIST changes: +AMLO10TA5 PO; +AMLO2.5T3 PO; +AMLO5TAB2 PO; +ASPI-255 PO; +ASPI81TA85 PO; +ATEN50TA2 PO; +ATOR40TA75 PO; +CEFT1INJ5 INJ; +CIPR-249 PO; +COUM1TAB18 PO; -CYSTO-CONRAY II 17.2% 250ML VIAL (Q9958) As Ordered; +ELIQ2.5T PO; +ELIQ5TAB PO; +FINA5TAB2 PO; +FLOM0.4C39 PO; +LEVO50TA4 PO; +LISIPOW PO; +MULTTAB4 PO; +OXYC1TAB23 PO; +PLAV1TAB2 PO; +PROBCAP4 PO; +SYNT50TA PO; +THIA50CA PO; +TYLE325T5 PO; +VITA500C24 PO; +VITAMIN E PO; +VITMTA PO
== END ==
LOC: M SMT 13:11
PROVIDERS: ATTEND Urology
DX: N32.89 Other specified disorders of bladder (principal)

== ENCOUNTER 2018-08-14 13:38 | Day surgery (SDC) | payer MEDICARE ==
[~2018-08-14] VITALS: Ht 172.7 cm; Wt 67.6 kg
[~2018-08-14 13:38] MED LIST changes: +LIDOCAINE 1% MDV 20ML VIAL SQ PRN; +LR 1,000 ML IV ONE
[2018-08-14] MEDS ORDERED: MEPERIDINE INJ 25 MG/ML VIAL (J2175) IV PRN (19:45)
[2018-08-14] MEDS ORDERED: LR 1,000 ML IV SCH (19:45)
[2018-08-14] MEDS ORDERED: ACETAMINOPHEN TAB 650MG DOSE (2X325MG) PO PRN (19:45)
[2018-08-14] MEDS ORDERED: ONDANSETRON 4MG/2ML VIAL (J2405) IV PRN (19:45)
[2018-08-14] MEDS ORDERED: PERCOCET 5MG/325MG TAB PO PRN (19:45)
[2018-08-14] MEDS ORDERED: METOCLOPRAMIDE INJ 10MG/2ML VIAL (J2765) IV PRN (19:45)
[2018-08-14] MEDS ORDERED: fentaNYL 100 MCG/2 ML INJECTION (J3010) IV PRN (19:45)
--- NOTE | 2018-08-14 20:57 | RO ---
DATE OF PROCEDURE: 08/14/2018 PREPROCEDURE DIAGNOSIS: Bladder cancer. POSTPROCEDURE DIAGNOSIS: Bladder cancer, bladder stone. PROCEDURE: Cystoscopy, transurethral resection of bladder tumor (between 2 and 5 cm), removal of bladder stone. SURGEON: Raudel Dorado MD WALLPAPER INSTALLER: None. ANESTHESIA: General. OPERATIVE INDICATIONS: This is an 88-year-old male with a history of bladder cancer who on recent office cystoscopy was found to have an approximately 2-1/2 cm tumor on the right lateral wall. He was brought today for the above listed procedure. DESCRIPTION OF PROCEDURE: The patient was brought to the operating room and general anesthesia was induced. Prophylactic antibiotics were infused. He was then placed in the dorsal lithotomy position and prepped and draped in the usual sterile fashion. A resectoscope was inserted into the urethral meatus and advanced into the bladder using a visual obturator. Of note, once inside, the bladder was thoroughly examined and the 2-1/2 cm tumor seen on the right lateral wall. Of note, there also appeared to be an approximately 2 cm stone inside a bladder diverticulum on the anterior wall. This stone was extracted and removed using a basket. Next, the tumor was completely resected using a loop. Once the tumor was completely resected, the base was cauterized for hemostasis. Once satisfied with hemostasis, all of the tumor specimen was removed from the bladder. The scope was then removed, and an 18-[place] Cook catheter was inserted into the bladder and the balloon was filled with 10 mL of sterile water. The catheter was then connected to gravity drainage, and this marked the conclusion of the procedure. The patient was taken out of the dorsal lithotomy position, awakened from anesthesia, and transported to the recovery room in stable condition. Estimated blood loss: 5 mL. Complications: None. Specimens: Bladder tumor, bladder stone. PLAN: The patient will followup in the clinic next week for catheter removal and discuss pathology results. [place]
[2018-08-14 21:07] VITALS: BP 191/89
== END 2018-08-14 21:07 | disposition home or self-care (01) ==
LOC: M SDC 13:38
PROVIDERS: ATTEND Urology
DX: D49.4 Neoplasm of unspecified behavior of bladder (principal); Z85.51 Personal history of malignant neoplasm of bladder; N21.0 Calculus in bladder; I48.91 Unspecified atrial fibrillation; I10 Essential (primary) hypertension; E03.9 Hypothyroidism, unspecified; Z79.01 Long term (current) use of anticoagulants; Z79.899 Other long term (current) drug therapy; E78.5 Hyperlipidemia, unspecified; N40.0 Benign prostatic hyperplasia without lower urinary tract symptoms; F03.90 Unspecified dementia, unspecified severity, without behavioral disturbance, psychotic disturbance, mood disturbance, and anxiety
CPT/HCPCS: 52235; 82360; 88300; 88307; J0690

== ENCOUNTER → 2018-10-12 | Outpatient (CLI) | payer MEDICARE ==
[~2018-10-12] MED LIST changes: -LIDOCAINE 1% MDV 20ML VIAL SQ PRN; -LR 1,000 ML IV ONE
--- NOTE | 2018-10-12 10:15 | REP ---
Limited abdominal ultrasound for splenomegaly: The spleen measures 8.8 x 6.5 x 4.2 cm for a splenic index of 246. The spleen is normal size. The spleen is homogeneous. No splenic masses or cysts are identified. The left kidney measures 9.2 x 4.7 x 4.8 cm and is in the low normal size range. Renal cortical echogenicity is hyperechoic compatible with medical renal disease. There is a simple left renal cyst laterally measuring 1.9 x 1.7 x 1.9 cm. Impression: The spleen is normal size. There is a left renal simple cyst. Electronically Signed by Destin Georges MD 10/12/2018 10:07 A
== END ==
LOC: M RAD 08:03
PROVIDERS: ATTEND Internal Medicine
DX: N28.1 Cyst of kidney, acquired (principal)